=== PATIENT | female | born 1985 | race American Indian/Alaskan Native ===

== ENCOUNTER 2021-08-24 14:41 | Emergency (ER) | payer OTHER ==
[2021-08-25] MEDS ORDERED: ACETAMINOPHEN 500 MG TAB PO ONE (02:19)
[2021-08-25] MEDS ORDERED: ASPIRIN 325 MG TAB PO ONE (02:19)
--- NOTE | 2021-08-25 02:54 | XRay Report ---
CHEST 1 VIEW INDICATION / CLINICAL INFORMATION: chest pain. COMPARISON: Prior chest radiograph 03/29/2009 FINDINGS: SUPPORT DEVICES: None. HEART / MEDIASTINUM: No significant abnormality. LUNGS / PLEURA: No significant pulmonary or pleural abnormality. No pneumothorax. ADDITIONAL FINDINGS: No significant additional findings. IMPRESSION: 1. No acute findings. No interval change. Signer Name: Sarah Field MD Signed: 08/25/2021 2:49 AM Workstation Name: [id number]
[2021-08-25 03:11] LABS: Basophils % (Auto) 0.1 % (0.0-1.8); Eosinophils # (Auto) 0.1 K/mm3 (0.0-0.4); Eosinophils % (Auto) 0.6 % (0.0-4.3); Hematocrit 40.5 % (30.3-42.9); Lymphocytes # (Auto) 3.6 K/mm3 (1.2-5.4); Lymphocytes % (Auto) 40.2 % (13.4-35.0); Mean Corpuscular HGB Conc 32 % (30-34); Mean Corpuscular Volume 92 fl (79-97); Monocytes # (Auto) 0.6 K/mm3 (0.0-0.8); Monocytes % (Auto) 7.3 % (0.0-7.3); Platelet Count 258 K/mm3 (140-440); Red Blood Count 4.41 M/mm3 (3.65-5.03)
[2021-08-25 03:35] LABS: Alanine Aminotransferase 20 units/L (7-56); Albumin 4.1 g/dL (3.9-5); BUN/Creatinine Ratio 11; Blood Urea Nitrogen 10 mg/dL (7-17); Calcium 9.2 mg/dL (8.4-10.2); Hemolysis Index 4
--- NOTE | 2021-08-25 07:45 | Emergency Department Report ---
<GREGFAINA IBRAHIM - Last Filed: 08/25/21 07:41> ED General Adult HPI - General Chief complaint: Chest Pain Stated complaint: CHEST PAIN Source: patient Mode of arrival: Ambulatory Limitations: No Limitations - History of Present Illness Initial comments: Patient is a 35-year-old -[place] female with a history of morbid obesity who presented to the ED with complaint of acute onset persistent severe left arm pain after having a peripheral IV access about a week ago at another hospital. Patient also states that in the last 3 days she has developed left- sided chest pain with shortness of breath and believe that she may be having pulmonary embolism or DVT. Patient denies dizziness, syncope, fever, chills, nausea and vomiting, numbness and tingling or weakness of upper and lower extremities bilaterally, cough, sore throat, abdominal pain, headache, lightheadedness or back pain. MD Complaint: Left upper arm pain; left-sided chest pain -: Sudden, week(s) (1) Location: chest, upper extremity (left arm) Radiation: non-radiation Severity scale (0 -10): 6 Quality: aching, sharp Consistency: constant Improves with: none Associated Symptoms: denies other symptoms, chest pain (Left-sided chest pain), shortness of breath, other (Left forearm pain). denies: confusion, cough, diaphoresis, fever/chills, headaches, loss of appetite, malaise, nausea/vomiting, rash, seizure, syncope, weakness Treatments Prior to Arrival: none - Related Data Allergies Allergy/AdvReac Type Severity Reaction Status Date / Time medroxyprogesterone Allergy Swelling Verified 06/20/20 08:03 [From Provera] Penicillins Allergy Itching Verified 06/20/20 08:03 sulfamethoxazole Allergy Itching Verified 06/20/20 08:03 [From Bactrim] trimethoprim [From Bactrim] Allergy Itching Verified 06/20/20 08:03 ED Review of Systems Constitutional: denies: chills, fever Eyes: denies: eye pain, eye discharge, vision change ENT: denies: ear pain, throat pain Respiratory: shortness of breath. denies: cough, wheezing Cardiovascular: chest pain (Left-sided chest pain). denies: palpitations Endocrine: no symptoms reported Gastrointestinal: denies: abdominal pain, nausea, vomiting, diarrhea Genitourinary: denies: urgency, dysuria, discharge Musculoskeletal: arthralgia (Left arm pain). denies: back pain, joint swelling Skin: denies: rash, lesions Neurological: denies: headache, weakness, paresthesias Psychiatric: denies: anxiety, depression Hematological/Lymphatic: denies: easy bleeding, easy bruising ED Past Medical Hx - Surgical History Additional Surgical History: C SECTION/ TONSILS/ HYST - Social History Smoking Status: Current Every Day Smoker Substance Use Type: None ED Physical Exam - General Limitations: No Limitations General appearance: alert, in no apparent distress - Head Head exam: Present: atraumatic, normocephalic, normal inspection - Eye Eye exam: Present: normal appearance, PERRL, EOMI Pupils: Present: normal accommodation - ENT ENT exam: Present: normal exam, normal orophraynx, mucous membranes moist, TM's normal bilaterally, normal external ear exam - Neck Neck exam: Present: normal inspection, full ROM. Absent: tenderness - Respiratory Respiratory exam: Present: normal lung sounds bilaterally. Absent: respiratory distress, wheezes, rales, chest wall tenderness, accessory muscle use, decreased breath sounds, prolonged expiratory - Cardiovascular Cardiovascular Exam: Present: regular rate, normal rhythm, normal heart sounds. Absent: systolic murmur, diastolic murmur, rubs, gallop - GI/Abdominal GI/Abdominal exam: Present: soft, normal bowel sounds. Absent: tenderness, rebound, hyperactive bowel sounds, hypoactive bowel sounds, organomegaly, mass, bruit - Extremities Exam Extremities exam: Present: normal inspection, full ROM, tenderness (Palpable left upper arm and left forearm tenderness), normal capillary refill - Back Exam Back exam: Present: normal inspection, full ROM. Absent: CVA tenderness (L), muscle spasm, paraspinal tenderness, vertebral tenderness - Neurological Exam Neurological exam: Present: alert, oriented X3, CN II-XII intact, normal gait, reflexes normal - Psychiatric Psychiatric exam: Present: normal affect, normal mood - Skin Skin exam: Present: warm, dry, intact, normal color, erythema (Mild erythematous left forearm ecchymosis), ecchymosis. Absent: rash ED Medical Decision Making - Lab Data Result diagrams: 08/25/21 02:38 08/25/21 02:38 - Radiology Data Radiology results: report reviewed, image reviewed - Medical Decision Making This is in the ED, patient is alert and oriented x3 and is not in distress. A 35-year-old -[place] female with a history of morbid obesity who presented to the ED with complaint of acute onset persistent severe left arm pain after having a peripheral IV access about a week ago at another hospital. Patient also states that in the last 3 days she has developed left-sided chest pain with shortness of breath and believe that she may be having pulmonary embolism or DVT. Lab test results were reviewed and are all nonactionable except for D-dimer level of 302.70. Chest x-ray showed no acute cardiopulmonary abnormalities or pneumonitis. Patient's heart score is 0. CTA chest for PE rule out and left upper extremity Doppler ultrasound procedures are pending. Patient care was transferred to Ms. Loida DRAPER at shift change. She shall review all imaging reports, reevaluate the patient and disposition the patient accordingly. - Differential Diagnosis DVT; PE; ACS; pneumonia; thrombophlebitis; cellulitis ED Disposition Clinical Impression: Nonspecific chest pain, Thrombophlebitis of left upper extremity, Pain in left forearm Disposition: 01 HOME / SELF CARE / HOMELESS Is pt being admited?: No Does the pt Need Aspirin: No Condition: Stable Instructions: Nonspecific Chest Pain, Adult, Thrombophlebitis, How to Use Cold Therapy, Urso-rd-Puvv Additional Instructions: CAT scans negative for any pulmonary embolism. Recommend Tylenol ibuprofen cold therapy to your arm. Follow-up with your primary care provider and referring you to a branch manager trainee. Referrals: [facility]AR[facility] HWANG AUDREY [Other] - 3-5 Days [facility] [Provider Group] - 3-5 Days Forms: Work/School Release Form(ED) <LOIDARUSSELL' M - Last Filed: 08/25/21 08:44> ED Review of Systems ROS: Stated complaint: CHEST PAIN Other details as noted in HPI ED Course Vital Signs 08/24/21 19:03 Temperature 98.3 F Pulse Rate 81 Respiratory 16 Rate Blood Pressure 128/74 [Right] O2 Sat by Pulse 98 Oximetry ED Medical Decision Making - Lab Data Result diagrams: 08/25/21 02:38 08/25/21 02:38 - Radiology Data [facility] [address] [place] [address] Cat Scan Report Signed Patient: AALIYAH DORSEY MR#: [id number] 230 : 1985 Acct:[id number] Age/Sex: 35 / F ADM Date: 08/24/21 Loc: ED Attending Dr: Ordering Physician: JOSEMANUEL DAVIS Date of Service: 08/25/21 Procedure(s): CT angio chest Accession Number(s): [id number] cc: JOSEMANUEL DAVIS CTA CHEST WITH CONTRAST INDICATION : chest pain 100 ml omni 350 . TECHNIQUE: Axial imaging performed through the chest, with contrast bolus timing set to maximize opacification of the pulmonary arteries. Sagittal and coronal reformatted images. 3-plane MIP reformatted images were obtained. All CT scans at this location are performed using CT dose reduction for ALARA by means of automated exposure control. 100 mL of intravenous contrast administered. COMPARISON: None FINDINGS: Bolus: Contrast bolus timing is adequate. PTE: No filling defect is present to suggest PTE. Mediastinum: Heart and great vessels appear normal. No pathologic mediastinal adenopathy. Lungs: Lungs are clear. Bones: Degenerative changes in the spine with nothing acute. Upper abdomen: Limited imaging of the upper abdomen shows nothing acute. IMPRESSION: Negative for PTE. Clear lungs. Signer Name: Alon Hawk Jr, MD Signed: 08/25/2021 8:20 AM Workstation Name: [id number] Transcribed By: TTR Dictated By: ALON HAWK JR, MD Electronically Authenticated By: ALON HAWK JR, MD Signed Date/Time: 08/25/21819 DD/ 7 TD/TT: Critical care attestation.: If time is entered above; I have spent that time in minutes in the direct care of this critically ill patient, excluding procedure time. ED Disposition Time of Disposition: 08:36
--- NOTE | 2021-08-25 08:24 | Cat Scan Report ---
CTA CHEST WITH CONTRAST INDICATION : chest pain 100 ml omni 350 . TECHNIQUE: Axial imaging performed through the chest, with contrast bolus timing set to maximize opa cification of the pulmonary arteries. Sagittal and coronal reformatted images. 3-plane MIP reformatte d images were obtained. All CT scans at this location are performed using CT dose reduction for ALAR A by means of automated exposure control. 100 mL of intravenous contrast administered. COMPARISON: None FINDINGS: Bolus: Contrast bolus timing is adequate. PTE: No filling defect is present to suggest PTE. Mediastinum: Heart and great vessels appear normal. No pathologic mediastinal adenopathy. Lungs: Lungs are clear. Bones: Degenerative changes in the spine with nothing acute. Upper abdomen: Limited imaging of the upper abdomen shows nothing acute. IMPRESSION: Negative for PTE. Clear lungs. Signer Name: Alon Hawk Jr, MD Signed: 08/25/2021 8:20 AM Workstation Name: [id number]
--- NOTE | 2021-08-25 08:50 | Electrocardiograph Report ---
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
--- NOTE | 2021-08-25 08:51 | Vascular Lab Report ---
DUPLEX DOPPLER UPPER EXTREMITY VENOUS, LEFT INDICATION / CLINICAL INFORMATION: left arm pain. TECHNIQUE: Duplex doppler imaging was performed through the veins of the left upper extremity using v enous compression and other maneuvers. COMPARISON: None available. FINDINGS: LEFT INTERNAL JUGULAR VEIN: Negative. LEFT SUBCLAVIAN VEIN: Negative. LEFT AXILLARY VEIN: Negative. LEFT BRACHIAL VEIN: Negative. LEFT FOREARM VEINS: Negative. LEFT BASILIC VEIN (SUPERFICIAL): Negative. ADDITIONAL FINDINGS: None. IMPRESSION: 1. No sonographic evidence for DVT. Signer Name: Hardeep Peralta MD Signed: 08/25/2021 8:47 AM Workstation Name: [id number]
[2021-08-25 09:01] VITALS: BP 145/74
== END 2021-08-25 09:00 | disposition home or self-care (01) ==
LOC: ED 14:41
DX: R07.9 Chest pain, unspecified (principal); I80.8 Phlebitis and thrombophlebitis of other sites; M79.632 Pain in left forearm; F17.200 Nicotine dependence, unspecified, uncomplicated; Z88.0 Allergy status to penicillin; Z88.2 Allergy status to sulfonamides; Z88.8 Allergy status to other drugs, medicaments and biological substances
CPT/HCPCS: 36415; 71045; 71275; 80053; 84484; 85025; 85379; 93005; 93971; 99284; Q9967